=== PATIENT | female | born 1985 | race Caucasian/White ===

== ENCOUNTER → 2020-08-20 02:39 | Outpatient (CLI) | payer OTHER, SELFPAY ==
[2020-08-20 21:58] LABS: SARS-CoV-2 RNA PCR Negative
== END ==
PROVIDERS: PCP Nurse Practitioner; Visit Provider Obstetrics & Gynecology Gynecology
DX: Z01.812 Encounter for preprocedural laboratory examination (principal); Z20.822 Contact with and (suspected) exposure to COVID-19
CPT/HCPCS: C9803; U0003; U0005

== ENCOUNTER 2020-08-23 00:45 | Day surgery (SDC) | payer OTHER, SELFPAY ==
[2020-08-16 14:32] VITALS: BMI 31.7
--- NOTE | 2020-08-23 08:04 | PM.HPGS ---
History of Present Illness History of Present Illness Consent: Risks, benefits, and alternatives have been discussed and questions answered. Patient agrees to proceed with procedure. Chief complaint: Abnormal Uterine Bleeding Narrative: Katja Palmer is a 35 year old female with heavy cycles. Patient u/s showed fibroids but did not distinguish location. Recommend to further work up with hysteroscopy and D&C with possible myosure removal of fibroids. Risks of infection, bleeding, perforation, and fluid imbalance reviewed. Possible pathology also reviewed. Agrees to proceed. Review of Systems Review of Systems: Narrative: not repeated day of surgery; patient states no changes in status PMFSH Past Medical History Medical History (Updated 08/23/20 @ 08:09 by Jessica Escobar MD) Endometriosis Surgical History Surgical History (Updated 08/23/20 @ 08:07 by Jessica Escobar MD) S/P x 3 S/P hernia repair Meds Home Medications and Allergies Home Medications Medication Instructions Recorded Confirmed Type cholecalciferol (vitamin D3) 1,250 mcg PO DAILY 08/16/20 08/16/20 History multivitamin [Multi-Vitamin] 1 tablet PO DAILY 08/16/20 08/16/20 History phentermine 30 mg PO DAILY 08/16/20 08/16/20 History Allergies Allergy/AdvReac Type Severity Reaction Status Date / Time No Known Allergies Allergy Verified 08/16/20 14:45 Exam Const: General: no acute distress GI: GI Palp: No abdominal tenderness : External Female Exam: normal external appearance Speculum Exam - Vagina: normal appearance of the vagina Speculum Exam - Cervix: normal appearance of the cervix Bimanual exam- vagina & uterus: enlarged (12 wk size-firm) Bimanual Exam- Adnexa, other: normal adnexae Assessment and Plan Assessment and plan (1) Menorrhagia: Code(s): N92.0 - Excessive and frequent menstruation with regular cycle Status: Acute Assessment and Plan: Plan to proceed with D&C hysteroscopy and if fibroids are submucosal, myosure resection.
--- NOTE | 2020-08-23 08:10 | WPDHPUPDATE1 ---
History and Physical Update Update Date/Time: 08/23/20 08:10 History and Physical has been reviewed, including an updated exam of the patient. There are NO changes in the patient's condition. Risks, benefits, and alternatives have been discussed and questions answered. Patient agrees to proceed with procedure.
[2020-08-23 09:20] VITALS: BP 134/82; PULSE 96; RESP 20; TEMP 37.3; O2SAT 100
[2020-08-23] MEDS: ACETAMINOPHEN 500 MG TABLET 1000 MG PO (09:20)
[2020-08-23] MEDS: LACTATED RINGERS 1,000 ML 30 ML IV CONT (09:21)
--- NOTE | 2020-08-23 10:19 | WPDANESEPPF ---
Anes - Initial Pre Proc Eval Procedure: Operation Date: 08/23/20 10:45 Proposed Procedures p Hysteroscopy Dilation and Curettage - Jessica Escobar MD Date/Time: 08/23/20 10:19 Surgeon: Jessica Escobar MD Pre Op Diagnosis: Abnormal Uterine Bleeding Patient Data Age: 35 Gender: F Height: 5 ft 4 in Weight: 82.3 kg Allergies Allergy/AdvReac Type Severity Reaction Status Date / Time No Known Allergies Allergy Verified 08/23/20 09:06 Home Medications Medication Instructions Recorded Confirmed Type cholecalciferol (vitamin D3) 1,250 mcg PO DAILY 08/16/20 08/16/20 History multivitamin [Multi-Vitamin] 1 tablet PO DAILY 08/16/20 08/16/20 History phentermine 30 mg PO DAILY 08/16/20 08/16/20 History Patient hx anesthesia problems: none Family hx anesthesia problems: none PMFSH Past Medical History Medical History (Updated 08/23/20 @ 08:09 by Jessica Escobar MD) Endometriosis Surgical History Surgical History (Updated 08/23/20 @ 08:07 by Jessica Escobar MD) S/P x 3 S/P hernia repair Anes - Eval Final PreProcedure Day of Procedure 08/23/20 10:19 Patient weight: overweight Heart: regular rate and rhythm Lungs: clear to auscultation Airway: Mallampati scale class II Neurological: alert and oriented Last oral intake: >/= 8 hours ASA classification: II Emergent: no Anesthetic plan: proceed Anesthesia type and monitoring: general GIVS and standard monitoring Informed Consent: The patient's anesthetic plan and its attendant risks and benefits were discussed with the patient/family/POA. Questions were solicited and answers provided to the satisfaction of the patient/family/POA.
[2020-08-23] MEDS: LIDOCAINE HCL 1% LOCAL INJ 20 ML VIAL 50 ML INFILTRATE (10:55)
[2020-08-23 11:16] VITALS: BP 121/67; PULSE 94; RESP 12; O2SAT 98
--- NOTE | 2020-08-23 11:22 | P.OP_ITS ---
Procedure Note - Detailed Date of procedure: 08/23/20 Pre-op diagnosis: Abnormal Uterine Bleeding fibroids Post-op diagnosis: same Procedure performed: D&C hysteroscopy with myosure resection of fibroids Description of procedure: The patient was taken to the operating room and placed in the dorsal lithotomy position under anesthesia. She was prepped and draped in usual sterile fashion. [place] speculum was placed in the vagina and the cervix is grasped on the anterior lip with a tenaculum. The cervix was injected with 1% lidocaine in each quadrant. The uterus is sounded to 10cm and noted to be retroverted. The cervix is serially dilated with Hegars. The diagnostic hysteroscope was placed and the endometrium appears secretory and has areas of bleeding making it difficult to visualize. Several small fibroids did appear to be present 1 anterior to the patient's left 1 posterior to patient's right and 1 on the mid right fundus. The MyoSure device was opened in placed and the fibroids are removed under direct visualization. Much of the thickened endometrium is also removed with the MyoSure device. The MyoSure device and camera removed. Medium sharp curette is used to sharply curette the endometrium until a good uterine cry was noted in all areas. A large amount of material was obtained consistent with the thickened secretory appearance of the endometrium. All instruments are removed. Sponge, instrument, and needle counts are correct per the OR staff. Anesthesia: MAC and local Surgeon: Jessica Escobar MD Estimated blood loss (mL): 5 Drains: No Packing: No Pathology: yes (endometrial shavings and curettings) Complications: No immediate complications Disposition: PACU Findings: uterus retroverted and 10 cm; several small fibroids noted; thickened endometrium
[2020-08-23 11:35] VITALS: BP 117/65; PULSE 82; RESP 12
[2020-08-23] MEDS: oxyCODONE HCL (*CRX) 5 MG TAB IR PO (12:02)
[2020-08-23 12:05] VITALS: BP 112/78; PULSE 84; RESP 16
[2020-08-23 12:25] VITALS: BP 112/83; PULSE 64; RESP 16
[2020-08-23] MEDS: ONDANSETRON HCL ODT 4 MG TABLET PO (12:40)
[2020-08-23 12:45] VITALS: BP 112/80; PULSE 70; RESP 16
== END 2020-08-23 13:08 | disposition home or self-care (01) ==
PROVIDERS: PCP Nurse Practitioner; Visit Provider Obstetrics & Gynecology Gynecology
PROC: 0U5B8ZZ Destruction of Endometrium, Via Natural or Artificial Opening Endoscopic (ICD-10-PCS; CPT 58563; principal; 2020-08-23 10:45)
DX: N92.0 Excessive and frequent menstruation with regular cycle (principal); D25.9 Leiomyoma of uterus, unspecified; N80.9 Endometriosis, unspecified
CPT/HCPCS: 58558; 88305; A9270; J2250; J2704; J3010; J7030; J7120